=== PATIENT | male | born 1950 | race African-American/Black ===

== ENCOUNTER 2016-08-03 00:40 | Observation (INO) | payer BC, OTHER ==
[2016-08-03] MEDS ORDERED: ASPIRIN (CHEWABLE) 81 MG TAB PO ONE (00:44)
[2016-08-03 00:51] VITALS: BMI 30.8
[2016-08-03] MEDS: NITROGLYCERINE 0.4 MG TAB SL SCH ×3 (00:55→02:43)
--- NOTE | 2016-08-03 01:04 | EDPRACDOC ---
- General Information Chief Complaint: Chest Pain Stated Complaint: CHEST PAIN Time Seen by Provider: 08/03/16 00:41 Information Source: Patient Mode of Arrival: Ambulance Home Medications: Home Medications Glimepiride [Amaryl] 1 mg PO BID 05/28/14 Carvedilol [Coreg] 6.25 mg PO BID 11/06/14 Aspirin (Enteric Coated) [Halfprin] 81 mg PO DAILYWM #100 tablet 11/08/14 Clopidogrel Bisulfate [Plavix] 75 mg PO DAILY #30 tablet 11/08/14 Metformin HCl 1,000 mg PO BID 03/25/15 Hydrochlorothiazide 25 mg PO QAM 02/03/16 L.acidoph & ParacaseiB.lactis [Probiotic] 1 cap PO DAILY 02/03/16 Polyethylene Glycol 3350 [Miralax] 17 gm PO QAM 02/03/16 Travoprost [Travatan Z] 1 drop OU HS 02/03/16 Valsartan [Diovan] 320 mg PO .QEVENING 06/10/16 Allergies/Adverse Reactions: Allergies Allergy/AdvReac Type Severity Reaction Status Date / Time atorvastatin Allergy Unknown Verified 08/03/16 01:27 ramipril Allergy Unknown Verified 08/03/16 01:27 - History of Present Illness Onset: 1730 HPI: PATIENT PRESENTS C/O CHEST PAIN LEFT SIDED WOKE FROM SLEEP TONIGHT. LASTED 20 MINUTES NOW MOVED TO LEFT ARM. NO FEVER. MILD SOB WITH EXERTION. NO COUGH Chest Pain Location: Reports: Left Chest Pain Radiation: Reports: Shoulder (L) Symptoms Occur: Reports: Suddenly Cardiac Risk Factors: Reports: Hyperlipidemia, Hypertension, Diabetes. Denies: Smoker Cardiac History of: Reports: Stress Test (YEARS AGO), Other (CVA) Prehospital Care: Reports: ASA Pain Came On: Reports: Suddenly Pain Status: Present Now Pain Description: Reports: Pressure Pain Severity: Mild Pain Worsens With: Reports: Nothing Pain Improves With: Reports: Nothing Associated Signs and Symptoms: Reports: SOB ED Past Medical History - History Reviewed Yes Nurses notes reviewed and agree except as marked Travel Outside of [place] in the Last 3 Months?: No - Patient Medical History Neurological History: Reports: Cerebrovascular Accident. Denies: Seizures, [place] Syndrome, Parkinson's, Multiple Sclerosis Cardiac History: Reports: Hypertension, Cardiac Catheterization, Stress Test, Hypercholesterolemia. Denies: Congestive Heart Failure, Heart Attack, CABG, Syncope Respiratory History: Denies: Asthma, COPD, Pneumonia, Emphysema, Pulmonary Embolism Psychological History: Denies: Depression, Anxiety, Substance Use Disorder Systemic History: Reports: Diabetes. Denies: Anemia Surgical History: Reports: Cardiac Catheterization, Other (knee surgery). Denies: CABG - Family Medical History Reports: Hypertension. Denies: Cancer, Stroke - Social Medical History Smoking Status: Never smoker Social History: Denies: Substance Use Disorder ETOH: None Substance Abuse: None Lives With: Family Lives In: Home EDM Review of Systems - Review of Systems ROS Negative Except as Marked: Yes All systems reviewed and were negative except as marked Constitutional: No Symptoms Reported. negative: Fever, Chills, Weakness, Fatigue, Loss of Appetite Eyes: No Symptoms Reported. negative: Redness, Blurred Vision, Double Vision, Discharge, Pain, Light Sensitive, Photophobia Ears: No Symptoms Reported. negative: Pain, Hearing Loss, Drainage, Ear Pulling Throat: No Symptoms Reported. negative: Pain, Swelling Nose: No Symptoms Reported. negative: Congestion, Bleeding, Discharge, Injection, Swelling, Deformity, Ecchymosis, Tender, Abrasion, Laceration Mouth: No Symptoms Reported. negative: Pain, Drooling Respiratory: No Symptoms Reported. negative: Cough, Brassy Cough, Barky Cough, Shortness of Breath, Wheezing, Hemoptysis Cardiovascular: Chest Pain. negative: Cyanosis, Edema, Orthopnea, Palpitations , PND, Syncope, Skin Mottling Gastrointestinal: No Symptoms Reported. negative: Pain, Constipation, Nausea, Vomiting, Diarrhea, Melena, Formula Intolerance Genitourinary: No Symptoms Reported. negative: Dysuria, Hematuria, Frequency, Discharge, Bleeding, Testicular Pain, Neurological: No Symptoms Reported. negative: Headache, Dizziness, Seizure, Numbness, Weakness, Speech Difficulty, Gait Difficulty Musculoskeletal: No Symptoms Reported. negative: Neck, Chestwall, Ribs, Back, Shoulder, Arm, Elbow, Forearm, Wrist, Hand, Pelvis, Hip, Femur, Knee, Leg, Ankle , Foot Integumentary: No Symptoms Reported. negative: Itching, Rash, Bruising, Wound Allergic/Immunologic: No Symptoms Reported. negative: Hives, Itching Hematologic: No Symptoms Reported. negative: Lymphadenopathy, Easy Bruising, Easy Bleeding Endocrine: No Symptoms Reported. negative: Weight Gain, Weight Loss Psychiatric: No Symptoms Reported. negative: Anxiety, Depression, Hallucinations, Insomnia, Suicidal - Physical Exam Constitutional: Alert (Awake), No apparent distress Oriented to: Time, Person, Place Last recorded Vital Signs: Last Vital Signs Temp 98 F 08/03/16 00:42 Pulse 96 08/03/16 00:51 Resp 20 08/03/16 00:51 BP 145/81 08/03/16 00:51 Pulse Ox 97 08/03/16 00:51 Oxygen Pulse Oxygen Saturation 97 O2 Device Nasal Cannula Oxygen Flow Rate 2 Fraction of Inspired Oxygen ( FIO2) - HEENT Head: Normal ( normocephalic) Eye Exam: Normal (PERRL, EOMI, Sclera white) Oropharynx: Normal (Pharynx:Moist without exudate,Gums-no swelling) Tympanic Membrane: Normal ENT EAC: Normal TMJ: Normal Nose: No Symptoms Reported (septum midline) Neck: Normal (FROM, trachea at midline) - Respiratory/Cardiovascular Respiratory: Normal - CTA (BBS clear to auscultation without adventitious sounds ) Cardiovascular: Normal (RRR without murmur, gallop or rub) - GI Auscultation: Normal (NABS) Palpation: Normal (Soft,No rebound or guarding, non distended) Tenderness: Non tender Lim's Sign: Negative - Musculoskeletal Back: Normal (Non-Tender) Extremities: Normal (Normal tone, Pulses 2+ No cyanosis or edema, FROM) - Integumentary Skin: Normal, Warm, Dry Lymphatics: Normal (no adenopathy) - Neurologic Memory Impaired: Normal Motor Function: Normal (Normal tone, Pulses 2+ No cyanosis or edema, FROM) Cranial Nerve: Normal (CN II-X11 intact sensation, strength 5/5) Cerebellar: Normal Mood Description: Normal Perception: Normal - Action ASA given in the ED: Yes Patient received Beta Tal within last 24hrs: Yes - Results 08/03/16 01:00 08/03/16 01:00 - EKG EKG #1 EKG Time: 00:48 -: Yes EKG interpreted by me Rate: bpm: 67 [place]: Normal Rhythm: NSR Block: None Hypertrophy: None ST: Normal - Departure Yes I personally saw and evaluated the patient. Disposition: Admit IP To This Hospital Condition: Stable Final Diagnosis: Unstable angina Instructions: Chest Pain (ED) Education/Counseling Given To: Patient Education/Counseling Given Regarding: Diagnosis, Treatment, Prognosis Referrals: None,No Provider [Primary Care Provider] - One Week Prescriptions: No Action Glimepiride [Amaryl] 1 mg PO BID Carvedilol [Coreg] 6.25 mg PO BID Aspirin (Enteric Coated) [Halfprin] 81 mg PO DAILYWM #100 tablet Clopidogrel Bisulfate [Plavix] 75 mg PO DAILY #30 tablet Metformin HCl 1,000 mg PO BID Travoprost [Travatan Z] 1 drop OU HS Polyethylene Glycol 3350 [Miralax] 17 gm PO QAM Hydrochlorothiazide 25 mg PO QAM L.acidoph & Paracasei,B.lactis [Probiotic] 1 cap PO DAILY Valsartan [Diovan] 320 mg PO .QEVENING Decision to Admit Time: 02:05 Decision to admit date: 08/03/16 Decision to admit: from ED - Physician Consulted Hospitalist Time Called: 02:05 Provider Called: Bartolome Guan Time Clinical Care Leader Returned Call: 02:05
[2016-08-03 01:23] LABS: AUTOMATED EOSINOPHIL 5.4 % (0-5); AUTOMATED LYMPH 22.8 % (17-44); AUTOMATED MONOCYTE 6.3 % (3-10); AUTOMATED NEUTROPHIL 64.5 % (45-76); MPV 7.6 fL (7.4-10.4)
[2016-08-03 01:31] LABS: BLOOD UREA NITROGEN 26 MG/DL (9-20); CALC CORRECTED 9.5 MG/DL (8.4-10.2); CALCIUM 9.4 MG/DL (8.4-10.2); CALCULATED OSMOLALITY 276 MOs/Kg (270-290); CHLORIDE 107 mEq/L (98-107); GLUCOSE 90 mg/dL (70-99); SODIUM LEVEL 141 mEq/L (137-146); TOTAL PROTEIN 7.5 G/DL (6.3-8.2)
[2016-08-03 01:39] LABS: PARTIAL THROMB. TIME 25.8 SEC (22-35)
--- NOTE | 2016-08-03 02:02 | DIRPT ---
CLINICAL DATA: Left-sided chest pain. EXAM: PORTABLE CHEST 1 VIEW COMPARISON: 06/10/2016 FINDINGS: The cardiomediastinal contours are normal. The lungs are clear. Pulmonary vasculature is normal. No consolidation, pleural effusion, or pneumothorax. No acute osseous abnormalities are seen. IMPRESSION: No acute pulmonary process. Electronically Signed By: Licha Orosco M.D. On: 08/03/2016 01:59
--- NOTE | 2016-08-03 02:21 | HISTPHYS ---
- Chief Complaint chest pain - History of Present Illness PRIMARY CARE PROVIDER: Dr. Bonilla HPI: The patient is a 66yo man with diabetes type 2, hypertension, hyperlipidemia, history of CVA, who presents with chest pain. Had not been exerting himself. He had eaten a few greasy hamburgers and went to bed right after that. He started coughing and having pain. He kept telling his that his chest was hurting and it was not getting better, so his called 911. Onset: yesterday - last night around 11pm. Duration: intermittent. Location: substernal and left chest. Radiation: down left arm. Character: 7/10 at times. Hard to describe. Alleviated by: Nothing. Exacerbated by: Nothing. Associated Symptoms: Shortness of breath with walking over 6 months to a year. Coughing that was non-productive. No wheezing. No nausea. No abdominal pain. No vomiting. Headache only after receiving nitroglycerin in the hospital. Treatments: none at home except usual medications. Risk review: Positive for diabetes, hypertension, hyperlipidemia. Lifelong non-smoker. Family History: Mother: [place] in 60s. Father is unknown. - Medical History Cardiac History: Reports: Hypertension, Cardiac Catheterization (approx 2005, no stents), Stress Test, Hypercholesterolemia Systemic History: Reports: Diabetes (Type 2.). Denies: Anemia Neurological History: Reports: Cerebrovascular Accident (2013 approx. Minimal left sided residual weakness.) - Surgical History Reports: Cardiac Catheterization, Other (Knee surgery. 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.) - Medictions/Allergies Allergies atorvastatin Allergy (Verified 08/03/16 01:27) Unknown ramipril Allergy (Verified 08/03/16 01:27) Unknown Current Medication List: Reviewed Home Medications Glimepiride [Amaryl] 1 mg PO BID 05/28/14 Carvedilol [Coreg] 6.25 mg PO BID 11/06/14 Aspirin (Enteric Coated) [Halfprin] 81 mg PO DAILYWM #100 tablet 11/08/14 Clopidogrel Bisulfate [Plavix] 75 mg PO DAILY #30 tablet 11/08/14 Metformin HCl 1,000 mg PO BID 03/25/15 Hydrochlorothiazide 25 mg PO QAM 02/03/16 L.acidoph & Paracasei,B.lactis [Probiotic] 1 cap PO DAILY 02/03/16 Polyethylene Glycol 3350 [Miralax] 17 gm PO QAM 02/03/16 Travoprost [Travatan Z] 1 drop OU HS 02/03/16 Valsartan [Diovan] 320 mg PO .QEVENING 06/10/16 - Family History Reports: Hypertension, Stroke (Mother), Cardiac Disorders (Mother: [place] in 60s. Father is unknown.), Blood Disorders (No family history of blood clots.) - Social History Smoking Status: Never smoker Social History: Denies: Alcohol Use, Substance Use Disorder - Review of Systems GENERAL: No Fever, chills, or diaphoresis. Positive for fatigue/malaise. HEENT: No ear pain or discharge. No nasal discharge or bleeding. No throat pain or swelling. No eye pain or eye redness. RESPIRATORY: Shortness of breath with walking over 6 months to a year. Coughing that was non-productive. No wheezing. CARDIOVASCULAR: Chest pain. No palpitations. GI: No abdominal pain, nausea, vomiting, diarrhea, constipation, or bloody stool. NEUROLOGICAL: No headache or focal weakness. INTEGUMENT: no rashes, itching, or lesions. LYMPHATIC SYSTEM: no lymph node swelling or pain. MUSCULOSKELETAL: no pain or joint swelling. GENITOURINARY: No dysuria or hematuria. ENDOCRINE: No polyuria or polydipsia. HEME: No chronic anemia, bleeding, or easy bruising. - Physical Exam Vital Signs: Initial Vitals Temperature 98 F 08/03/16 00:42 Pulse Rate 70 08/03/16 00:42 Respiratory Rate 20 08/03/16 00:42 Blood Pressure 153/78 08/03/16 00:42 Pulse Oxygen Saturation 98 08/03/16 00:42 Vital Signs - 24 hr 08/03/16 08/03/16 08/03/16 00:42 00:51 01:00 Temperature 98 F Pulse Rate 70 96 70 Respiratory 20 20 20 Rate Blood Pressure 153/78 145/81 134/63 Pulse Oxygen 98 97 99 Saturation 08/03/16 01:17 Temperature Pulse Rate 85 Respiratory 20 Rate Blood Pressure 102/56 L Pulse Oxygen 99 Saturation Weight: 108.8 kg Height: 6 feet 2 inches BMI: 30.8 - Other Exam Other Exam Findings: GENERAL: Ill-appearing, well nourished, no acute distress. HEENT: Normocephalic, atraumatic; pupils equal and round. Nares patent, without discharge or bleeding. No oropharyngeal lesions or erythema. Mucous membranes are dry. NECK: is supple, no masses, trachea midline. RESPIRATORY: Clear to auscultation bilaterally. Chest wall movements are symmetric. No use of accessory muscles to breathe. No wheezing, rales, rhonchi. CARDIOVASCULAR: Normal S1, S2. No murmurs, rubs, or gallops. PMI non-displaced. Carotids: no carotid bruits. No bradycardia or tachycardia. DP pulses 2+ bilaterally. GI: soft, non-distended, normal active bowel sounds. No hepatosplenomegaly. Tenderness in right upper quadrant. INTEGUMENT: Clean, dry, and intact. No rashes. No lesions. MUSCULOSKELETAL: Moving all extremities. No cyanosis. No clubbing. Edema: none bilaterally. NEUROLOGICAL: Cranial nerves 2-12 grossly intact. Motor 5/5 throughout. Reflexes : 2+ bilaterally. Babinski: toes downgoing bilaterally. Intact Finger to nose. Sensory grossly intact to light touch. Intact rapid alternating movements bilaterally. No pronator drift. PSYCHIATRIC: Fully oriented. Normal and appropriate affect. LYMPHATIC: No cervical lymphadenopathy. No supraclavicular lymphadenopathy. - Lab Results Laboratory Results - last 24 hr 08/03/16 08/03/16 08/03/16 01:00 01:00 01:00 WBC 7.8 RBC 3.77 L Hgb 11.4 L Hct 34.5 L MCV 92 MCH 30.3 MCHC 33.1 RDW 13.9 Plt Count 251 MPV 7.6 Neut % (Auto) 64.5 Lymph % (Auto) 22.8 Izard % (Auto) 6.3 Eos % (Auto) 5.4 H Baso % (Auto) 1.0 Absolute Neuts (auto) 4.99 Absolute Lymphs (auto) 1.72 PT 10.7 INR 1.0 APTT 25.8 Sodium 141 Potassium 4.5 Chloride 107 Carbon Dioxide 24 Anion Gap 15 BUN 26 H Creatinine 1.30 H Estimated GFR (MDRD) > 60 Glucose 90 Calculated Osmolality 276 Calcium 9.4 Corrected Calcium 9.5 Total Bilirubin 0.5 AST 25 ALT 27 Alkaline Phosphatase 107 Troponin I < 0.01 Put-I-Glhlmjvirln Pept Total Protein 7.5 Albumin 3.9 Lipase 232 08/03/16 01:00 WBC RBC Hgb Hct MCV MCH MCHC RDW Plt Count MPV Neut % (Auto) Lymph % (Auto) [place] % (Auto) Eos % (Auto) Baso % (Auto) Absolute Neuts (auto) Absolute Lymphs (auto) PT INR APTT Sodium Potassium Chloride Carbon Dioxide Anion Gap BUN Creatinine Estimated GFR (MDRD) Glucose Calculated Osmolality Calcium Corrected Calcium Total Bilirubin AST ALT Alkaline Phosphatase Troponin I Csk-T-Sjumuolswgd Pept 124 Total Protein Albumin Lipase - Diagnostic Findings EK bpm. Normal sinus rhythm. Reviewed EKG personally. Chest x-ray, viewed personally: EXAM: PORTABLE CHEST 1 VIEW COMPARISON: 06/10/2016 FINDINGS: The cardiomediastinal contours are normal. The lungs are clear. Pulmonary vasculature is normal. No consolidation, pleural effusion, or pneumothorax. No acute osseous abnormalities are seen. IMPRESSION: No acute pulmonary process. - Assessment (1) Chest pain R07.9 - CHEST PAIN, UNSPECIFIED Acute Present on Admission: Yes Rule out myocardial infarction. Plan: Obtain cardiac enzymes x 3. Place patient on telemetry. Give patient oxygen, aspirin. Give nitroglycerin, and morphine as needed for chest pain. Give statin. Stress test has been ordered for the morning. Patient has been advised, if the stress test is negative, to follow up with the primary care provider for evaluation of other potential causes of the chest pain. (2) Right upper quadrant abdominal tenderness R10.811 - RIGHT UPPER QUADRANT ABDOMINAL TENDERNESS Acute Present on Admission: Yes Qualifiers: Presence of rebound: absent Qualified Code(s): R10.811 - Right upper quadrant abdominal tenderness Suspect biliary dyskinesia, cholelithiasis. Plan: Need to rule out [place]. If stress test is negative, consider workup for gall bladder as source. (3) Dyspnea on exertion R06.09 - OTHER FORMS OF DYSPNEA Acute Present on Admission: Yes Acute on chronic issue. Dyspnea on exertion over the last 6 months or more. Plan: Oxygen by nasal cannula p.r.n.. Consider further workup as an outpatient. (4) Diabetes type 2, controlled E11.9 - TYPE 2 DIABETES MELLITUS WITHOUT COMPLICATIONS Acute Present on Admission: Yes Plan: Hold oral diabetes medications. Check fingerstick blood sugars q ac and hs. Sliding scale insulin. Ordered A1c and urine microalbumin. Case Care Discussed with: Patient, Family, Nursing Staff
[2016-08-03] MEDS ORDERED: MORPHINE 2 MG/ML INJECTION IV PRN (02:46)
[2016-08-03] MEDS ORDERED: NITROGLYCERINE 0.4 MG TAB SL PRN (02:46)
[2016-08-03] MEDS ORDERED: Pharmacy Order Set Alert SCH (03:00)
[2016-08-03] MEDS ORDERED: TRAVOPROST 0.004% OPHTH SOLN 2.5 ML BOTTLE OU SCH ×2 (03:00→21:00)
[2016-08-03] MEDS ORDERED: Vaccine Screening Complete SCH (04:00)
[2016-08-03] MEDS ORDERED: GUAIFEN 100 MG-DEXTROMETH 10 MG PER 5 ML PO PRN (04:58)
[2016-08-03] MEDS ORDERED: PROMETHAZINE 25 MG/ML VIAL IV PRN (04:58)
[2016-08-03] MEDS ORDERED: BENZONATATE 100 MG PERLES PO PRN (04:58)
[2016-08-03] MEDS ORDERED: BISACODYL 5 MG TAB PO PRN (04:58)
[2016-08-03] MEDS ORDERED: Aluminum;Magnesium;Simethicone 30 ML UDC PO PRN (04:58)
[2016-08-03] MEDS ORDERED: GLUCAGON 1 MG VIAL SQ PRN (04:58)
[2016-08-03] MEDS ORDERED: SENNA CONCENTRATE TAB PO PRN (04:58)
[2016-08-03] MEDS ORDERED: TEMAZEPAM 15 MG CAP PO PRN (04:58)
[2016-08-03] MEDS ORDERED: ONDANSETRON HCL 4 MG/2 ML VIAL IV PRN (04:58)
[2016-08-03] MEDS ORDERED: ACETAMINOPHEN 325 MG SUPP PR PRN (04:58)
[2016-08-03] MEDS ORDERED: GLUCOSE (ORAL GEL) 15 GM TUBE PO PRN (04:58)
[2016-08-03] MEDS ORDERED: ACETAMINOPHEN 325 MG/TAB TABLET PO PRN (04:58)
[2016-08-03] MEDS ORDERED: DEXTROSE 25 GM/50 ML PFS IV PRN (04:58)
[2016-08-03 06:21] LABS: ALL NEG? YES; MDMA* NEG (NEGATIVE); METHAMPHETAMINES NEG (NEGATIVE); OXYCODONE NEG (NEGATIVE)
[2016-08-03] MEDS: REGULAR INSULIN 100 UNITS/ML - 3 ML VIAL SQ SCH ×2 (06:26→11:26)
[2016-08-03] MEDS ORDERED: SESTAMIBI 8 MCI V IV ONE (08:14)
[2016-08-03 08:21] LABS: LDL (calc.) 163.6 MG/DL (<100); VLDL (calc.) 13.4 MG/DL (5-40)
[2016-08-03] MEDS ORDERED: REGADENOSON 0.4 MG/5 ML SYRINGE IV ONE (08:30)
[2016-08-03] MEDS ORDERED: SODIUM CHLORIDE 0.9% 10 ML FLUSH FLUSH ONE (08:30)
[2016-08-03] MEDS ORDERED: HYDROCHLOROTHIAZIDE 25 MG TAB PO SCH (09:00)
[2016-08-03] MEDS ORDERED: CARVEDILOL 6.25 MG TAB PO SCH (09:00)
[2016-08-03] MEDS ORDERED: PEG-ELECTROLYTE 17 GM PACK PO SCH (09:00)
[2016-08-03] MEDS ORDERED: CLOPIDOGREL 75 MG TAB PO SCH (09:00)
--- NOTE | 2016-08-03 11:35 | PCM.STRESS ---
REGADENOSON MYOCARDIAL PERFUSION STRESS TEST DATE OF PROCEDURE: 08/03/16 INDICATION: Chest pain-SC ruled out, prior CVA RESTING DATA: HR 78 B/P 134/76 Chest clear Cor: Regular rhythm, soft ejection murmur RESTING EKG: Normal sinus with occasional PACs. No ST-T changes PROTOCOL: Approx 8 mCi of technetium-99m pyrophosphate (Cardiolyte) was injected intravenously and tomograhic imaging performed at rest. An hour later, 0.4 mg of regadenoson was injected as an IV bolus, followed by an additional 25 mCi of Cardiolyte and tomographic imaging repeated. Heart rate [layla to] 98 per minute. BP remained stable in range of 136/70 Patient tolerated well. Mild malaise no chest pain. STRESS EKG: Rhythm: Sinus with PACs. No pauses ST-T changes: None MYOCARDIAL PERFUSION IMAGING: Rotational display of raw projection data documents [stable pt position during imaging]. [There is a high right hemidiaphragm and prominent hepatic uptake]. There is gross cardiomegaly and a Clear potential for] [diaphragm attenuation artifact is suggested]. There is a vague area of mild decreased counts density through the posterior wall on both rest and stress imaging. No areas of vasodilators stress-induced hypoperfusion are identified. Gated imaging confirms dilated left ventricle with mild diffuse hypokinesis, and end-systolic volume of 76 mL and an ejection fraction of 41% IMPRESSION: (1) Functional capacity is not assessed (2) Dilated left ventricle with mild diffuse hypokinesis, with end- systolic volume of 76 ml and ejection fraction of 41 %. (3) mild diaphragm attenuation artifact posteriorly (4) [No areas of vasodilator induced hypoperfusion are identified] Negative pharmacologic perfusion stress test for potential ischemia.
[2016-08-03 11:57] VITALS: BP 146/73; PULSE 64; TEMP 98.3
[2016-08-03] MEDS: GLIMEPIRIDE 1 MG TAB PO ONE ×2 (11:59→12:02)
[2016-08-03] MEDS ORDERED: MetFORMIN 1000 MG IMMED REL TAB PO ONE (12:00)
[2016-08-03] MEDS ORDERED: PROBIOTIC BLEND TAB PO SCH (12:00)
--- NOTE | 2016-08-03 12:21 | PCM.DCS92 ---
- Final/Secondary Discharge Diagnosis (1) Chest pain Acute R07.9 - CHEST PAIN, UNSPECIFIED Present on Admission: Yes Comment: Rule out myocardial infarction. Plan: Obtain cardiac enzymes x 3. Place patient on telemetry. Give patient oxygen, aspirin. Give nitroglycerin, and morphine as needed for chest pain. Give statin. Stress test has been ordered for the morning. Patient has been advised, if the stress test is negative, to follow up with the primary care provider for evaluation of other potential causes of the chest pain. (2) Right upper quadrant abdominal tenderness Acute R10.811 - RIGHT UPPER QUADRANT ABDOMINAL TENDERNESS Present on Admission: Yes absent R10.811 - Right upper quadrant abdominal tenderness Comment: Suspect biliary dyskinesia, cholelithiasis. Plan: Need to rule out [place]. If stress test is negative, consider workup for gall bladder as source. (3) CVA - cerebrovascular accident due to cerebral artery occlusion Acute I63.50 - CEREB INFRC DUE TO UNSP OCCLS OR STENOS OF UNSP CEREB ARTERY Comment: The patient will be admitted into the hospital on the evidence based stroke protocol. He will see the aspirin and statins. We will consult physical therapy and occupational therapy. He will have a swallow evaluation done by speech therapy as well. Blood pressure will be monitored closely. Patient not a candidate for tPA due to symptoms improving rapidly. (4) Diabetes type 2, controlled Acute E11.9 - TYPE 2 DIABETES MELLITUS WITHOUT COMPLICATIONS Present on Admission: Yes Comment: Plan: Hold oral diabetes medications. Check fingerstick blood sugars q ac and hs. Sliding scale insulin. Ordered A1c and urine microalbumin. Discharge Disposition: Home Discharge Condition: Good Cognitive Discharge Status: Unimpaired Fuctional Discharge Status: Independent Physician Follow up/Referrals: None,No Provider [Family Provider] - One Week Home Medications / New Prescriptions: Continue Glimepiride [Amaryl] 1 mg PO BID Carvedilol [Coreg] 6.25 mg PO BID Aspirin (Enteric Coated) [Halfprin] 81 mg PO DAILYWM #100 tablet Clopidogrel Bisulfate [Plavix] 75 mg PO DAILY #30 tablet Metformin HCl 1,000 mg PO BID Travoprost [Travatan Z] 1 drop OU HS Polyethylene Glycol 3350 [Miralax] 17 gm PO QAM Hydrochlorothiazide 25 mg PO QAM L.acidoph & Paracasei,B.lactis [Probiotic] 1 cap PO DAILY Valsartan [Diovan] 320 mg PO .QEVENING O2 Device: Nasal Cannula Diet at Discharge: Heart Healthy, Diabetic Activity: No Restrictions Call Office For: Worsening Symptoms, Fever over 101 F - DC Summary Notes HPI/Notes: This is a pleasant 66-year-old male with a history of diabetes and prior CVA, who was admitted to the hospital due to chest pain. His troponins were negative , he had negative stress test this morning and is ready for discharge home. Note that on examination, does have a positive Lim sign and I was concerned for cholecystitis. His liver enzymes are completely normal the patient declined further evaluation of his gallbladder at this time. I explained to him the importance of seeking medical care if he has continued abdominal pain, especially if it is postprandial right upper quadrant pain. He and his understand, and they request discharge home today. Will follow up with his outpatient primary provider regarding his possible cholelithiasis.Please see the hospital problems and discharge problems above for details of the hospital course including diagnostics and treatment. The plan of care including medications, prognosis, follow-up including alarm symptoms for which medical care should be sought were reviewed with the patient and any available family members/caretakers. The patient is agreeable to discharge today, and all questions were answered by me to their satisfaction. Hospital Course Note:: Discharge summary on patient named PEPITO KAHN SR admitted to [facility] on 08/03/16 by Bartolome Guan MD. Date of discharge is []. Total Time: 32 - Physical Exam Vital Signs: Last Vital Signs Temp 98.3 F 08/03/16 11:57 Pulse 64 08/03/16 11:57 Resp 18 08/03/16 11:57 BP 146/73 08/03/16 11:57 Pulse Ox 100 08/03/16 11:57 Oxygen Pulse Oxygen Saturation 100 O2 Device Nasal Cannula Oxygen Flow Rate 2 Fraction of Inspired Oxygen ( FIO2) Constitutional: Alert (Awake), No apparent distress Oriented to: Time, Person, Place - HEENT Head: Normal ( normocephalic) Eye: Normal (PERRL, EOMI, Sclera white) Oropharynx: Normal (Pharynx:Moist without exudate,Gums-no swelling) Tympanic Membrane: Normal ENT EAC: Normal TMJ: Normal Nose: No Symptoms Reported (septum midline) - Respiratory/Cardiovascular Respiratory: Normal - CTA (BBS clear to auscultation without adventitious sounds ) Cardiovascular: Normal (RRR without murmur, gallop or rub) - GI Auscultation: Normal (NABS) Palpation: Normal (Soft,No rebound or guarding, non distended) Tenderness: Non tender Lim's Sign: Positive - Musculoskeletal Back: Normal (Non-Tender) Extremities: Normal (Normal tone, Pulses 2+ No cyanosis or edema, FROM) - Integumentary Skin: Normal, Warm, Dry Lymphatics: Normal (no adenopathy) - Neurologic Memory Impaired: Normal Cerebellar: Normal Mood Description: Normal Perception: Normal
--- NOTE | 2016-08-03 13:32 | CAPUEKG ---
[place], [place] Test Date: 2016-08-03 Pat Name: PEPITO KAHN Department: Room: 450 Gender: Male Medical Front Desk Coordinator: JEREMY : Requested By: Order Number: Reading MD: Cooper Soliman Measurements Intervals [place] Rate: 71 P: 67 IN: 138 QRS: 11 QRSD: 98 T: -13 QT: 410 QTc: 445 Interpretive Statements Sinus rhythm with premature supraventricular complexes Nonspecific T wave abnormality Abnormal ECG No change from prior tracing. Electronically Signed On 08-03-16 13:31:59 EST by Cooper Soliman [email or web address] [id number]
[2016-08-03] MEDS ORDERED: MetFORMIN 1000 MG IMMED REL TAB PO SCH (17:00)
[2016-08-03] MEDS ORDERED: GLIMEPIRIDE 1 MG TAB PO SCH (17:00)
[2016-08-03] MEDS ORDERED: VALSARTAN 160 MG TAB PO SCH ×2 (17:00→21:00)
[2016-08-03] MEDS ORDERED: ENOXAPARIN 40 MG/0.4 ML PFS SQ SCH (18:00)
[2016-08-03] MEDS ORDERED: SIMVASTATIN 20 MG TAB PO SCH (18:00)
== END 2016-08-03 13:16 | disposition home or self-care (01) ==
LOC: ED 00:40 → PCU 02:19
PROVIDERS: ADMIT Internal Medicine; ATTEND Internal Medicine
DX: R07.89 Other chest pain (principal); R10.811 Right upper quadrant abdominal tenderness; E11.9 Type 2 diabetes mellitus without complications; R06.00 Dyspnea, unspecified; I10 Essential (primary) hypertension; E78.5 Hyperlipidemia, unspecified; E78.00 Pure hypercholesterolemia, unspecified; Z86.73 Personal history of transient ischemic attack (TIA), and cerebral infarction without residual deficits; Z79.82 Long term (current) use of aspirin; Z79.899 Other long term (current) drug therapy
CPT/HCPCS: 36415; 71010; 78452; 80053; 80061; 80307; 82043; 82947; 82962; 83036; 83690; 83880; 84484; 85025; 85610; 85730; 93005; 93017; 99285; A4216; A9500; G0378; J2785; J3490; J1650